=== PATIENT | female | born 1990 | race Caucasian/White ===

== ENCOUNTER → 2018-02-16 13:50 | Outpatient (CLI) | payer OTHER, MEDICAID, SELFPAY | PROVIDERS: Family Provider Family Medicine; PCP Family Medicine; Visit Provider Internal Medicine | DX: R30.0 Dysuria (principal) | CPT/HCPCS: 87077; 87086; 87186 ==

== ENCOUNTER → 2018-03-19 14:14 | Outpatient (CLI) | payer OTHER, MEDICAID, SELFPAY ==
--- NOTE | 2018-03-19 14:15 | DI.MRI.S_ITS ---
PROCEDURE: MR SHOULDER RT WO CON INDICATIONS: screening TECHNIQUE: Noncontrast oblique coronal T2 fast spin echo with fat saturation, oblique sagittal T1 spin echo and T2 fast spin echo with fat saturation, axial T1 spin echo and T2 fast spin echo with fat saturation through the shoulder. COMPARISON: None. FINDINGS: Image quality: Excellent. Rotator cuff: There is low to moderate grade bursal surface partial thickness tear involving distal supraspinatus extending from its insertion on the humeral head to the level of musculotendinous junction. Distal infraspinatus tendinosis is seen. Subscapularis tendon is intact. No evidence of full-thickness rotator cuff tendon rupture. Sagittal images demonstrate no significant muscle atrophy. Bones and bursae: No bone marrow contusions or fractures. 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 The acromion demonstrates conventional anatomy, without an os acromiale. No pathologic subacromial-subdeltoid or subcoracoid bursal fluid is present. Capsule and soft tissues: In the absence of intra-articular contrast, there is signal abnormality and contour irregularity involving superior anterior labrum at one to 2:00 position suspicious for focal superior anterior labral tear. Glenohumeral ligaments appear intact. The long head of the biceps tendon demonstrates normal location and morphology. The rotator interval appears normal, without fibrosis. The coracohumeral ligament is normal in thickness. IMPRESSION: 1. Mild a.c. joint osteophyte is. No fracture or dislocation. 2. Tendinosis and low to moderate grade bursal surface partial-thickness tear involving distal supraspinatus. Distal infraspinatus tendinosis. No full-thickness rotator cuff tendon rupture. 3. Finding is suspicious for focal superior anterior labral tear at one to 2:00 position. Dictated by: Siva Galindo M.D. on 03/19/2018 at 15:19 Approved by: Siva Galindo M.D. on 03/19/2018 at 15:24
== END ==
PROVIDERS: Family Provider Family Medicine; PCP Family Medicine; Visit Provider Internal Medicine
DX: M25.511 Pain in right shoulder (principal); M25.711 Osteophyte, right shoulder
CPT/HCPCS: 73221

== ENCOUNTER 2019-11-04 12:56 | Emergency (ER) | payer OTHER, SELFPAY ==
[2019-11-04 13:18] VITALS: BP 116/71; PULSE 73; RESP 14; TEMP 37; O2SAT 99; BMI 32.8
[2019-11-04 14:07] LABS: Add Manual Diff / Slide Review NO; Basophils Absolute Auto 0 /uL (0-100); Basophils Percent Auto 0.6 % (0-2); Eosinophils Absolute Auto 0 /uL (0-450); Eosinophils Percent Auto 0.4 % (2-4); Hematocrit 37.3 % (36-46); Hemoglobin 12.4 g/dL (12.0-16.0); Lymphocytes Absolute Auto 2200 /uL (1100-4500); Lymphocytes Percent Auto 45.4 % (25-40); Mean Corpuscular HGB Conc 33.4 % (30-36); Mean Corpuscular Hemoglobin 28.8 PG (26-34); Mean Corpuscular Volume 86.4 fL (80-100); Monocytes Absolute Auto 400 /uL (0-900); Monocytes Percent Auto 8.3 % (3-14); Neutrophils Absolute Auto 2200 /uL (1500-7000); Neutrophils Percent Auto 45.3 % (50-75); Platelet Count 145 X10^3/uL (150-400); Red Blood Cell Count 4.31 X10^6/uL (4.0-5.2); Red Cell Distribution Width 13.9 % (11.6-14.8); White Blood Cell Count 4.8 X10^3/uL (4.5-11.0)
[2019-11-04 14:12] LABS: Alanine Aminotransferase 24 IU/L (<35); Albumin 4.4 g/dL (3.5-5.0); Albumin Globulin Ratio 1.5 (1.0-2.8); Alkaline Phosphatase 59 U/L (38-126); Aspartate Aminotransferase 27 IU/L (14-36); BUN Creatinine Ratio 13.2 (6-22); Bilirubin Total 0.6 mg/dL (0.2-1.3); Blood Urea Nitrogen 10 mg/dL (7-17); Calcium 9.2 mg/dL (8.4-10.2); Carbon Dioxide 22 mmol/L (22-32); Chloride 106 mmol/L (98-107); Estimated Glomerular Filt Rate > 60.0 mL/min (>60); Globulin 2.9 g/dL (1.7-4.1); Glucose 91 mg/dL (70-100); HEMOLYSIS < 15 (0-50); Lipase 45 U/L (23-300); Sodium 136 mmol/L (137-145); Total Protein 7.3 g/dL (6.3-8.2)
[2019-11-04] MEDS: SODIUM CHLORIDE 0.9% 1,000 ML 999 ML IV (14:19)
[2019-11-04] MEDS: ONDANSETRON 4 MG/2 ML INJ IV (14:20)
[2019-11-04 14:24] VITALS: BP 105/56; PULSE 66; RESP 12; O2SAT 99
[2019-11-04] MEDS: PANTOPRAZOLE 40 MG VIAL IV (14:43)
--- NOTE | 2019-11-04 14:43 | DI.CT.S_ITS ---
PROCEDURE: CT ABDOMEN PELVIS W CON INDICATIONS: generalized abdomen pain, vomiting TECHNIQUE: After the administration of intravenous contrast, 5 mm thick sections acquired from the diaphragm to the symphysis. 5 mm coronal and sagittal reformats were acquired. For radiation dose reduction, the following was used: automated exposure control, adjustment of mA and/or kV according to patient size. COMPARISON: [facility], , ABDOMEN COMPLETE, 08/03/2012, 8:39. FINDINGS: Image quality: Excellent. ABDOMEN: Lung bases: Lung bases are clear. Heart size is normal. There is a small hiatal hernia seen. Solid organs: Liver is normal in size and enhancement. Incidental note is made of focal fatty infiltration adjacent to the falciform ligament, which is not regarded to be pathologic. Gallbladder has been removed. Biliary system is non dilated. Pancreas enhances normally. Spleen is normal in size and enhancement. No adrenal nodules. Kidneys demonstrate normal size and enhancement, without hydronephrosis. Peritoneum and bowel: Bowel loops demonstrate normal wall thickness and caliber. No free fluid or air. Incidental note is made of a normal-appearing appendix. Nodes and vessels: No retroperitoneal or mesenteric adenopathy by size criteria. Aorta and inferior vena cava are normal in size. Miscellaneous: A mild periumbilical hernia is seen, containing fat. PELVIS: Genitourinary: Bladder wall thickness is normal. An IUD is seen at its expected location. The uterus is otherwise unremarkable. There is a rim-enhancing irregular cyst of the right ovary that measures 2 cm. Within the pelvis, there is a moderate amount of dependently layering free fluid seen, which demonstrates a simple appearance, measuring 12 Hounsfield units. Miscellaneous: No inguinal hernias or adenopathy. Bones: No suspicious bony lesions. No vertebral body compression fractures. Mild levoconvex scoliotic curvature is noted. IMPRESSION: These imaging findings are most compatible with a ruptured hemorrhagic cyst of the right ovary. There is an associated moderate amount of dependently layering free fluid seen within the pelvis. At clinical discretion, a followup pelvic ultrasound is suggested in 6 weeks to assure resolution/ improvement. No significant bowel abnormality is seen. Incidental note is made of: Small hiatal hernia Cholecystectomy Fat containing periumbilical hernia Normal appendix IUD Dictated by: Anurag Perales M.D. on 11/04/2019 at 14:09 Approved by: Anurag Perales M.D. on 11/04/2019 at 14:13
[2019-11-04 15:00] VITALS: BP 106/62; PULSE 67; RESP 16; O2SAT 98
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
[2019-11-04] MEDS: KETOROLAC 60 MG/2 ML VIAL 30 MG IV (15:43)
[2019-11-04 16:26] LABS: RBC Urine None Seen (0-5/HPF)
[2019-11-04 16:31] VITALS: BP 105/67; PULSE 70; O2SAT 98
[2019-11-04 16:38] LABS: Amorphous Sediment Urine 2+; Bacteria Urine Many (>30); Culture Indicated Urine Specimen Cultured; Squamous Epithelial Cell Urine 1-5 /HPF (0-5/HPF); WBC Urine 5-10/HPF (0-5/HPF)
== END 2019-11-04 16:32 | disposition home or self-care (01) ==
PROVIDERS: Emergency Provider Nurse Practitioner Family; PCP Family Medicine
DX: N83.201 Unspecified ovarian cyst, right side (principal); R11.2 Nausea with vomiting, unspecified; R10.30 Lower abdominal pain, unspecified; F41.9 Anxiety disorder, unspecified
CPT/HCPCS: 36415; 74177; 80053; 81003; 81015; 81025; 83690; 85025; 87077; 87086; 87186; 93005; 96361; 96374; 96375; 99284; C9113; J1885; J2405; Q9967